=== PATIENT | female | born 1990 | race American Indian/Alaskan Native ===

== ENCOUNTER 2018-03-02 12:00 | Emergency (ER) | payer MEDICAID ==
[2018-03-02 12:29] VITALS: BP 137/83
--- NOTE | 2018-03-02 14:48 | Emergency Department Report ---
HPI - General Chief Complaint: Abdominal Pain Time Seen by Provider: 03/02/18 14:30 - HPI HPI: 27-year-old female presents to the emergency department with complaint of some lower abdominal and pelvic cramping and a mild amount of vaginal bleeding that started this morning. The patient was concerned that she took a home test 6 weeks ago that was positive at that time. She does have a history of 2 previous ectopic pregnancies with right-sided tube removal. She has an [facility] indicator but has not seen them regarding her symptoms. Currently the patient says she is not having any abdominal pain but when it occurred it was a cramping sensation consistent with menstrual cycle- type pain. She does have a history of abnormal menstrual cycles. She has not taken anything for her symptoms prior to presentation. She denies any vaginal discharge, dysuria, fever, nausea or vomiting. ED Past Medical Hx - Past Medical History Previous Medical History?: Yes Additional medical history: Hx of ectopic preg. - Surgical History Past Surgical History?: Yes Additional Surgical History: Hx of ectopic preg - Social History Smoking Status: Current Every Day Smoker Substance Use Type: None ED Review of Systems ROS: Stated complaint: SEVERE PAIN Other details as noted in HPI Comment: All other systems reviewed and negative Constitutional: denies: chills, fever Eyes: denies: eye pain, eye discharge, vision change ENT: denies: ear pain, throat pain Respiratory: denies: cough, shortness of breath, wheezing Cardiovascular: denies: chest pain, palpitations Gastrointestinal: abdominal pain (resolved). denies: nausea, vomiting Genitourinary: other (vaginal bleeding). denies: dysuria Musculoskeletal: denies: back pain, joint swelling, arthralgia Skin: denies: rash, lesions Neurological: denies: headache, weakness, paresthesias Physical Exam - Physical Exam Vital Signs: Vital Signs 03/02/18 12:25 Temperature 98.2 F Pulse Rate 52 L Respiratory 16 Rate Blood Pressure 137/83 O2 Sat by Pulse 100 Oximetry Physical Exam: GENERAL: The patient is well-developed well-nourished. HENT: Normocephalic. Atraumatic. Patient has moist mucous membranes. EYES: Extraocular motions are intact. NECK: Supple. Trachea is midline. CHEST/LUNGS: Clear to auscultation. There is no respiratory distress noted. HEART/CARDIOVASCULAR: Regular. There is no tachycardia. There is no murmur. ABDOMEN: Abdomen is soft, nontender. Patient has normal bowel sounds. There is no abdominal distention. SKIN: Skin is warm and dry. NEURO: The patient is awake, alert, and oriented. The patient is cooperative. The patient has no focal neurologic deficits. The patient has normal speech. MUSCULOSKELETAL: There is no tenderness or deformity. There is no evidence of acute injury. ED Course Vital Signs 03/02/18 12:25 Temperature 98.2 F Pulse Rate 52 L Respiratory 16 Rate Blood Pressure 137/83 O2 Sat by Pulse 100 Oximetry - Pulse Oximetry Interpretation Digit-Finger Initial Pulse Oximetry Readin O2 Sat by Pulse Oximetry: 100 Actions Taken: none Additional Comments: normal ED Medical Decision Making - Medical Decision Making The patient's quantitative beta hCG was less than 2, or essentially 0/negative. The patient's last positive home test was 6 weeks ago. Currently she denies any abdominal or pelvic pain. With all this together, the patient has a very low likelihood of ectopic , ovarian torsion, or any of the emergent [facility] conditions. The previous cramping and mild vaginal bleeding may be an abnormal menstrual cycle and/or dysfunctional uterine bleeding. Nonetheless, the patient appears safe for discharge home at this time. She says that she has good follow-up with an [facility] in [place]. She's been encouraged to return to the emergency Department with any worsening of her symptoms or any acute distress. Dictation software was used for certain portions of this chart and therefore there may be some dictation errors within these notes. - Differential Diagnosis , ectopic, ovarian torsion, fibroids Critical Care Time: No Critical care attestation.: If time is entered above; I have spent that time in minutes in the direct care of this critically ill patient, excluding procedure time. ED Disposition Clinical Impression: Dysfunctional uterine bleeding, Abdominal cramping Disposition: DC-01 TO HOME OR SELFCARE Is pt being admited?: No Condition: Stable Instructions: Dysfunctional Uterine Bleeding (ED), Abdominal Pain (ED) Additional Instructions: Please follow-up with your [facility] in the next few days. Return to the emergency department with any return of your pelvic pain, worsening of your symptoms, or any acute distress. Referrals: PRIMARY CARE, [Primary Care Provider] - [facility] Time of Disposition: 14:47
== END 2018-03-02 15:00 | disposition home or self-care (01) ==
LOC: ED 12:00
DX: N93.8 Other specified abnormal uterine and vaginal bleeding (principal); R10.30 Lower abdominal pain, unspecified; F17.200 Nicotine dependence, unspecified, uncomplicated
CPT/HCPCS: 36415; 84702; 86900; 86901; 99283